=== PATIENT | male | born 1975 | race Caucasian/White ===

== ENCOUNTER 2024-07-01 22:26 | Emergency (ER) | payer SELFPAY ==
[~2024-07-01] VITALS: Ht 157.5 cm; Wt 51.1 kg
[2024-07-01 22:46] VITALS: BP 130/94; RESP 18; TEMP 98.3; O2SAT 99
[2024-07-01 22:49] VITALS: PULSE 88; O2SAT 99
[2024-07-01] MEDS ORDERED: HYDROCODONE/ACETAMINOPHEN 5/325MG TABLET PO ONE (23:30)
[2024-07-01] MEDS ORDERED: KETOROLAC 30MG/ML VIAL IM ONE (23:30)
[2024-07-01] MEDS ORDERED: LIDOCAINE HCL/PF 1% 10 MG/ML 5ML VIAL INFIL ONE (23:30)
[2024-07-01] MEDS ORDERED: TETANUS, DIPHTHERIA, PERTUSSIS VAC/PF 0.5ML (>10YR OLD) IM ONE (23:30)
[2024-07-01] MEDS ORDERED: BACITRACIN ZINC OINT UDPKT TOP ONE (23:30)
== END 2024-07-02 00:26 | disposition left against medical advice (07) ==
LOC: ER 22:26
DX: S01.511A Laceration without foreign body of lip, initial encounter (principal); M25.511 Pain in right shoulder; Y08.89XA Assault by other specified means, initial encounter; Y04.0XXA Assault by unarmed brawl or fight, initial encounter; Y92.89 Other specified places as the place of occurrence of the external cause; Y99.8 Other external cause status
CPT/HCPCS: 99281